=== PATIENT | female | born 1955 | race Caucasian/White ===

== ENCOUNTER 2018-04-03 09:13 | Day surgery (SDC) | payer OTHER ==
[2018-04-03] MEDS ORDERED: PROPOFOL 20 ML (11:11)
[2018-04-03] MEDS ORDERED: FENTAnyl 50 MCG/ML VIAL (11:11)
== END 2018-04-03 15:09 | disposition home or self-care (01) ==
LOC: GIL 09:13
DX: Z12.11 Encounter for screening for malignant neoplasm of colon (principal); K57.90 Diverticulosis of intestine, part unspecified, without perforation or abscess without bleeding; K64.8 Other hemorrhoids; J45.909 Unspecified asthma, uncomplicated; I10 Essential (primary) hypertension
CPT/HCPCS: 45380